=== PATIENT | female | born 1950 | race Caucasian/White ===

== ENCOUNTER 2016-08-02 21:24 | Inpatient (IN) | payer BC ==
[~2016-08-02] VITALS: Ht 167.6 cm; Wt 76.4 kg
[~2016-08-02 21:24] MED LIST: ACCU40TA10 PO; ASPI1TAB7 PO; CLAR5TAB PO; DYAZ; FINA15GE2; MAGN500T4 PO; MOME17I; POTA-243 PO; ROSUVASTATIN; TRAV0.00 LEFT EYE; WELL150T PO; [UNRECOGNIZED DRUG - OTHER] PO
[2016-08-02] MEDS ORDERED: SODIUM CHLOR 0.9% 1000 ML INJ 800 ML IV ONE (21:27)
[2016-08-02] MEDS ORDERED: SODIUM CHLOR 0.9% 1000 ML INJ 1,000 ML IV ONE (21:27)
[2016-08-02 21:30] VITALS: BP 108/78; PULSE 120; RESP 18; TEMP 97.6; O2SAT 99
[2016-08-02 21:34] VITALS: RESP 18; O2SAT 99
--- NOTE | 2016-08-02 21:43 | PD ---
HPI Chief Complaint: Altered Mental Status Time Seen by Provider: 21:27 Travel History International Travel<30 days: No Contact w/Intl Traveler<30days: No Traveled to known affect area: No History of Present Illness HPI 66-year-old female brought in by her significant other for evaluation of depressed mental status and generalized weakness. Patient has been having issues with her blood pressure all week. She was prescribed amlodipine earlier this week, and prescribed her terazosin today. She took the first dose of this medication, then went into the shower. While in the shower she experienced generalized weakness. She did not pass out or injure herself. Here the patient reports that for the last week she has also been experiencing diarrhea. She has had several loose/brown bowel movements. No melena or hematochezia. Diarrhea is associated with left lower quadrant abdominal pain. No history of abdominal surgeries. She denies chest pain or dyspnea. No urinary symptoms. No headache. No paresthesias or motor deficits. PFSH Past Medical History Cardiovascular Problems: Yes Social History Tobacco Use: No Allergies-Medications (Allergen,Severity, Reaction): Coded Allergies: Codeine (Verified Adverse Reaction, Severe, SOB, 08/02/16) Reported Meds & Prescriptions Reported Meds & Active Scripts Active Reported Atorvastatin (Atorvastatin Calcium) 20 Mg Tab 20 Mg PO HS Lutein 20 Mg Cap 20 Mg PO BID Accupril (Quinapril HCl) 40 Mg Tab 40 Mg PO DAILY Finacea Topical (Azelaic Acid) 15% Gel 1 Applic TOPICAL BID Apply and gently massage a thin layer into affected areas on the face. Travatan Z Opth Drops (Travoprost) 0.004 % Soln 1 Drop EACH EYE HS Xanax (Alprazolam) 0.25 Mg Tab 0.25 Mg PO Q6H PRN Wellbutrin SR 12 HR (Bupropion HCl) 150 Mg Tab 150 Mg PO DAILY Amlodipine (Amlodipine Besylate) 10 Mg Tab 10 Mg PO DAILY Aspirin 81 Mg Chew 81 Mg CHEW DAILY Review of Systems Except as stated in HPI: all other systems reviewed are Neg Physical Exam Narrative GENERAL: Well-developed, well-nourished, awake, keeps eyes closed, moving slowly , moves all extremities SKIN: Focused skin assessment warm/dry. No rash. No lacerations, abrasions, or ecchymosis. No pallor. HEAD: Atraumatic. Normocephalic. EYES: Pupils equal, round, 3 mm, reactive to light. No scleral icterus. No injection or drainage. ENT: Mucous membranes pink and dry. NECK: Trachea midline. No JVD. No nuchal rigidity. CARDIOVASCULAR: Tachycardic, rate 120, regular. RESPIRATORY: No accessory muscle use. Clear to auscultation. Breath sounds equal bilaterally. GASTROINTESTINAL: Abdomen soft, nondistended. Moderate left lower quadrant tenderness without rebound or guarding. Rest of abdomen is soft and nontender. Normal bowel sounds. No hernias. MUSCULOSKELETAL: No obvious deformities. No clubbing. No cyanosis. No edema. NEUROLOGICAL: Awake and alert. No obvious cranial nerve deficits. Motor grossly within normal limits. Normal speech. No focal deficits. PSYCHIATRIC: Appropriate mood and affect; insight and judgment normal. Data Data Last Documented VS Vital Signs Date Time Temp Pulse Resp B/P Pulse Ox O2 Delivery O2 Flow Rate FiO2 08/02/16 23:23 94 18 127/62 99 Room Air 08/02/16 21:30 97.6 Orders Electrocardiogram (08/02/16 21:27) Complete Blood Count With Diff (08/02/16 21:27) Comprehensive Metabolic Panel (08/02/16 21:27) Prothrombin Time / Inr (Pt) (08/02/16 21:27) Act Partial Throm Time (Ptt) (08/02/16 21:27) Lactic Acid Sepsis Protocol (08/02/16 21:27) Magnesium (Mg) (08/02/16 21:27) Ckmb (Isoenzyme) Profile (08/02/16 21:27) Troponin I (08/02/16 21:27) Urinalysis - C+S If Indicated (08/02/16 21:27) Blood Culture (08/02/16 21:27) Chest, Single Ap (08/02/16 21:27) Blood Glucose (08/02/16 21:27) Ecg Monitoring (08/02/16 21:27) Iv Access Insert/Monitor (08/02/16 21:27) Oximetry (08/02/16 21:27) Oxygen Administration (08/02/16 21:27) Sodium Chlor 0.9% 1000 Ml Inj (Ns 1000 M (08/02/16 21:27) Sodium Chlor 0.9% 1000 Ml Inj (Ns 1000 M (08/02/16 21:27) Ct Brain W/O Iv Contrast(Rout) (08/02/16 ) Thyroid Stimulating Hormone (08/02/16 21:27) CKMB (08/02/16 21:30) CKMB% (08/02/16 21:30) Ct Abd/Pel W/O Iv Contrast (08/02/16 ) Ciprofloxacin 400 Mg Premix (Cipro 400 M (08/02/16 23:45) Metronidazole 500 Mg Inj (Flagyl 500 Mg (08/02/16 23:45) Admit Order (Ed Use Only) (08/03/16 00:15) Ciprofloxacin 400 Mg Premix (Cipro 400 M (08/03/16 12:00) Metronidazole 500 Mg Inj (Flagyl 500 Mg (08/03/16 08:00) Admit To Inpatient (08/03/16 ) Vital Signs (Adult) Q4H (08/03/16 00:15) Activity Oob With Assistance (08/03/16 00:15) Food And Beverage Checker / Telemetry .CONTINUOUS (08/03/16 00:15) Intake + Output MARY GRACE.QSHIFT (08/03/16 00:15) Diet Regular Basic (08/03/16 Breakfast) Sodium Chlor 0.9% 1000 Ml Inj (Ns 1000 M (08/03/16 00:15) Sodium Chloride 0.9% Flush (Ns Flush) (08/03/16 00:15) Sodium Chloride 0.9% Flush (Ns Flush) (08/03/16 09:00) Ondansetron Inj (Zofran Inj) (08/03/16 00:15) Comprehensive Metabolic Panel (08/04/16 06:00) Complete Blood Count With Diff (08/04/16 06:00) Scd Bilateral/Knee High MARY GRACE.BID (08/03/16 00:15) Nico Bilateral/Knee High MARY GRACE.QSHIFT (08/03/16 00:15) Acetaminophen (Tylenol) (08/03/16 00:15) Docusate Sodium-Senna (Susan-Colace) (08/03/16 09:00) Magnesium Hydroxide Liq (Milk Of Magnesi (08/03/16 00:15) Sennosides (Senokot) (08/03/16 00:15) Bisacodyl Supp (Dulcolax Supp) (08/03/16 00:15) Lactulose Liq (Lactulose Liq) (08/03/16 00:15) Inpatient Certification (08/03/16 ) (Nf) Travoprost Opth Drops (Travatan Z O (08/03/16 21:00) Labs Laboratory Tests Test 08/02/16 21:30 White Blood Count 13.1 TH/MM3 Red Blood Count 5.00 MIL/MM3 Hemoglobin 15.0 GM/DL Hematocrit 44.3 % Mean Corpuscular Volume 88.6 FL Mean Corpuscular Hemoglobin 30.0 PG Mean Corpuscular Hemoglobin 33.8 % Concent Red Cell Distribution Width 11.6 % Platelet Count 193 TH/MM3 Mean Platelet Volume 8.6 FL Neutrophils (%) (Auto) 75.3 % Lymphocytes (%) (Auto) 16.6 % Monocytes (%) (Auto) 6.9 % Eosinophils (%) (Auto) 0.6 % Basophils (%) (Auto) 0.6 % Neutrophils # (Auto) 9.8 TH/MM3 Lymphocytes # (Auto) 2.2 TH/MM3 Monocytes # (Auto) 0.9 TH/MM3 Eosinophils # (Auto) 0.1 TH/MM3 Basophils # (Auto) 0.1 TH/MM3 CBC Comment DIFF FINAL Differential Comment Prothrombin Time 10.6 SEC Prothromb Time International 1.0 RATIO Ratio Activated Partial 23.6 SEC Thromboplast Time Sodium Level 140 MEQ/L Potassium Level 3.4 MEQ/L Chloride Level 105 MEQ/L Carbon Dioxide Level 22.9 MEQ/L Anion Gap 12 MEQ/L Blood Urea Nitrogen 22 MG/DL Creatinine 1.40 MG/DL Estimat Glomerular Filtration 38 ML/MIN Rate Random Glucose 169 MG/DL Lactic Acid Level 3.0 mmol/L Calcium Level 8.6 MG/DL Magnesium Level 2.1 MG/DL Total Bilirubin 0.6 MG/DL Aspartate Amino Transf 30 U/L (AST/SGOT) Alanine Aminotransferase 30 U/L (ALT/SGPT) Alkaline Phosphatase 119 U/L Total Creatine Kinase 244 U/L Creatine Kinase MB 1.6 NG/ML Creatine Kinase MB % 0.7 % Troponin I LESS THAN 0.02 NG/ML Total Protein 6.5 GM/DL Albumin 3.5 GM/DL Thyroid Stimulating Hormone 8.850 uIU/ML 3rd Gen [facility] Medical Decision Making Medical Screen Exam Complete: Yes Emergency Medical Condition: Yes Interpretation(s) EKG: Sinus, rate 103, PVCs, left axis deviation, LVH, lateral ST changes probably due to LVH. Differential Diagnosis Sepsis, metabolic abnormality, diverticulitis, intra-abdominal infectious process, UTI, cystitis, intracranial abnormality, medication reaction Narrative Course Initial vital signs show heart rate 120, blood pressure 108/78, pulse ox 99% on room air, oral temp of 97.6F. CBC shows WBC 13.1, hemoglobin 15, hematocrit 44.3, platelets 193, neutrophils 75.3%. CMP is remarkable for BUN 22, creatinine 1.4, GFR 38, random glucose 169, otherwise essentially unremarkable. TSH is 8.85 Lactic acid is 3.0 Chest x-ray shows no acute disease. CT head read as normal exam. CT abdomen pelvis: CONCLUSION: Abnormal descending colon with wall thickening and surrounding inflammatory change. There are several diverticuli in the sigmoid colon and the findings are consistent with colitis. The etiology is nonspecific. There is no free air. There is a small amount of fluid in the pelvis. Patient was made aware of all findings. She was given 2 L of normal saline IV and is feeling much improved. She is much more awake and alert. Again there are no focal neurologic findings on exam. She was written for a dose of IV Cipro and Flagyl for colitis seen on CT abdomen pelvis. Her initial presentation could be secondary to dehydration as well as medication side effect after taking her first dose of Terazosin. Given her initial presentation of severe generalized weakness/near syncope, lactic acidosis, initial sinus tachycardia of 120, patient will be admitted for overnight observation for further treatment and evaluation. Patient and the patient's were made aware of all findings and plan for admission. Case discussed with the patient's primary care physician Dr. Valladares. She would like the patient to be admitted to the [facility] hospitalist service. Case discussed with hospitalist Dr. Lopez who will admit the patient to her service. Diagnosis Primary Impression: Sepsis Qualified Code: A41.9 - Sepsis, due to unspecified organism Additional Impressions: Colitis Lactic acidosis Near syncope Kadeem Aguilar MD Aug 02, 2016 21:43
[2016-08-02 21:50] LABS: AUTOMATED NEUTROPHIL # 9.8 TH/MM3 (1.8-7.7); BASOPHIL # 0.1 TH/MM3 (0-0.2); BASOPHIL % 0.6 % (0.0-2.0); EOSINOPHIL # 0.1 TH/MM3 (0-0.4); EOSINOPHIL % 0.6 % (0.0-4.0); HEMATOCRIT 44.3 % (35.0-46.0); HEMO FLAGS DIFF FINAL; LYMPH % 16.6 % (9.0-44.0); LYMPHOCYTE # 2.2 TH/MM3 (1.0-4.8); MEAN CELL VOLUME 88.6 FL (80.0-100.0); MEAN CORPUSCULAR HGB CONC 33.8 % (32.0-36.0); MONO % 6.9 % (0.0-8.0); NEUT % 75.3 % (16.0-70.0); PLATELET COUNT 193 TH/MM3 (150-450); RED CELL DISTRIBUTION WIDTH 11.6 % (11.6-17.2); WHITE BLOOD COUNT 13.1 TH/MM3 (4.0-11.0)
[2016-08-02 21:54] VITALS: BP 124/63; PULSE 100; RESP 18; O2SAT 100
[2016-08-02 21:59] LABS: CHLORIDE 105 MEQ/L (98-107); POTASSIUM 3.4 MEQ/L (3.5-5.1); SODIUM (NA) 140 MEQ/L (136-145)
[2016-08-02 22:03] LABS: ANION GAP 12 MEQ/L (5-15); BICARBONATE 22.9 MEQ/L (21.0-32.0); BLOOD UREA NITROGEN 22 MG/DL (7-18); MAGNESIUM 2.1 MG/DL (1.5-2.5)
[2016-08-02 22:06] LABS: ALT (GPT) 30 U/L (10-53); AST (GOT) 30 U/L (15-37); GLOMERULAR FILTRATION RATE 38 ML/MIN (>89)
[2016-08-02 22:08] LABS: TOTAL BILIRUBIN ADULT 0.6 MG/DL (0.2-1.0)
[2016-08-02 22:09] LABS: ALKALINE PHOSPHATASE 119 U/L (45-117); CREATINE KINASE 244 U/L (26-192)
[2016-08-02 22:21] LABS: CKMB 1.6 NG/ML (0.5-3.6)
[2016-08-02] MEDS ORDERED: AMLO10TA2 PO (22:28)
[2016-08-02] MEDS ORDERED: ASPI81CH CHEW (22:28)
[2016-08-02] MEDS ORDERED: BUPR150CR PO (22:28)
--- NOTE | 2016-08-02 22:28 | RADHPO ---
EXAM DATE/TIME: 08/02/2016 21:43 [facility] COMPARISON: No previous studies available for comparison. INDICATIONS : Shortness of breath. MEDICAL HISTORY : None. SURGICAL HISTORY : None. ENCOUNTER: Initial ACUITY: 1 day PAIN SCORE: 0/10 LOCATION: Bilateral chest FINDINGS: A single view of the chest demonstrates the lungs to be symmetrically aerated without evidence of mas s, infiltrate or effusion. The cardiomediastinal contours are unremarkable. Osseous structures are intact. CONCLUSION: No acute disease. Aubrey Townsend MD on August 02, 2016 at 22:25 Board Certified Radiologist. This report was verified electronically.
[2016-08-02] MEDS ORDERED: LUTE20CA PO (22:32)
[2016-08-02] MEDS ORDERED: TRAV0.00 EACH EYE (22:32)
[2016-08-02] MEDS ORDERED: FINA15GE TOPICAL (22:32)
[2016-08-02] MEDS ORDERED: ALPR.25 PO (22:32)
[2016-08-02] MEDS ORDERED: ACCU40TA PO (22:32)
[2016-08-02] MEDS ORDERED: ATOR20TA15 PO (22:32)
[2016-08-02 22:35] VITALS: BP 122/66; PULSE 96; RESP 18; O2SAT 100
[2016-08-02 22:41] LABS: APTT (PATIENT) 23.6 SEC (24.3-30.1); PROTHROMBIN TIME - PATIENT 10.6 SEC (9.8-11.6)
--- NOTE | 2016-08-02 23:01 | RADHPO ---
EXAM DATE/TIME: 08/02/2016 22:41 [facility] COMPARISON: No previous studies available for comparison. INDICATIONS : Altered mental status RADIATION DOSE: 65.28 CTDIvol (mGy) MEDICAL HISTORY : Cardiovascular disease. Hypertension. SURGICAL HISTORY : Tonsillectomy. ENCOUNTER: Initial ACUITY: 3 days PAIN SCALE: 0/10 LOCATION: cranial TECHNIQUE: Multiple contiguous axial images were obtained of the head. Using automated exposure control and adj ustment of the mA and/or kV according to patient size, radiation dose was kept as low as reasonably a chievable to obtain optimal diagnostic quality images. FINDINGS: CEREBRUM: The ventricles are normal for age. No evidence of midline shift, mass lesion, hemorrhage or acute in farction. No extra-axial fluid collections are seen. POSTERIOR FOSSA: The cerebellum and brainstem are intact. The 4th ventricle is midline. The cerebellopontine angle i s unremarkable. EXTRACRANIAL: The visualized portion of the orbits is intact. SKULL: The calvaria is intact. No evidence of skull fracture. CONCLUSION: Normal examination. Aubrey Townsend MD on August 02, 2016 at 22:59 Board Certified Radiologist. This report was verified electronically.
--- NOTE | 2016-08-02 23:14 | RADHPO ---
EXAM DATE/TIME: 08/02/2016 22:47 [facility] COMPARISON: No previous studies available for comparison. INDICATIONS : Left lower quadrant pain. ORAL CONTRAST: No oral contrast ingested. RADIATION DOSE: 15.29 CTDIvol (mGy) MEDICAL HISTORY : Cardiovascular disease. SURGICAL HISTORY : None. ENCOUNTER: Initial ACUITY: 3 days PAIN SCALE: 5/10 LOCATION: Left lower quadrant TECHNIQUE: Volumetric scanning of the abdomen and pelvis was performed. Using automated exposure control and ad justment of the mA and/or kV according to patient size, radiation dose was kept as low as reasonably achievable to obtain optimal diagnostic quality images. FINDINGS: LOWER LUNGS: The visualized lower lungs are clear. LIVER: Homogeneous density without lesion. There is no dilation of the biliary tree. No calcified gallston es. SPLEEN: Normal size without lesion. PANCREAS: Within normal limits. KIDNEYS: Normal in size and shape. There is no mass, stone, or hydronephrosis. ADRENAL GLANDS: Within normal limits. VASCULAR: There is no aortic aneurysm. BOWEL/MESENTERY: There is bowel wall thickening involving the majority of the descending colon with surrounding inflam matory change in the mesenteric fat. There is no free air. There is a small amount of free fluid in t he pelvis. There are calcifications noted in the posterior pelvis as well. There are multiple diverti culi noted in the sigmoid colon. ABDOMINAL WALL: Within normal limits. RETROPERITONEUM: There is no lymphadenopathy. BLADDER: No wall thickening or mass. REPRODUCTIVE: Within normal limits. INGUINAL: There is no lymphadenopathy or hernia. MUSCULOSKELETAL: Within normal limits for patient age. CONCLUSION: Abnormal descending colon with wall thickening and surrounding inflammatory change. T here are several diverticuli in the sigmoid colon and the findings are consistent with colitis. The e tiology is nonspecific. There is no free air. There is a small amount of fluid in the pelvis. Kurt Rahman MD on August 02, 2016 at 23:06 Board Certified Radiologist. This report was verified electronically.
[2016-08-02 23:23] VITALS: BP 127/62; PULSE 94; RESP 18; O2SAT 99
[2016-08-02 23:45] LABS: LACTIC ACID GHOST NOT REPORTABLE
[2016-08-02] MEDS ORDERED: CIPROFLOXACIN 400 MG PREMIX 200 ML IV ONE (23:45)
[2016-08-02] MEDS ORDERED: metroNIDAZOLE 500 MG INJ 100 ML IV ONE (23:45)
[2016-08-03] VITALS (7 sets, daily range): BP systolic 121–150; BP diastolic 64–84; PULSE 80–108; RESP 18–20; TEMP 97.2–98.6; O2SAT 96–100
[2016-08-03] MEDS ORDERED: BISACODYL 10 MG SUPP RECTAL PRN (00:15)
[2016-08-03] MEDS ORDERED: SENNOSIDES 8.6 MG TAB PO PRN (00:15)
[2016-08-03] MEDS ORDERED: ONDANSETRON HCL 4 MG/2 ML VIAL IVP PRN (00:15)
[2016-08-03] MEDS ORDERED: MAGNESIUM HYDROXIDE SUSP 30 ML CUP PO PRN (00:15)
[2016-08-03] MEDS ORDERED: ACETAMINOPHEN 325 MG TAB PO PRN (00:15)
[2016-08-03] MEDS ORDERED: SODIUM CHLORIDE 0.9% FLUSH 10 ML FLUSH IV FLUSH PRN (00:15)
[2016-08-03] MEDS ORDERED: LACTULOSE SYRUP 20 GM/30 ML CUP PO PRN (00:15)
[2016-08-03] MEDS: SODIUM CHLOR 0.9% 1000 ML INJ 1,000 ML IV SCH ×2 (00:49→10:15)
[2016-08-03 01:59] LABS: GLUCOSE,URINE NEG (NEG); KETONE, URINE TRACE mg/dL (NEG); NITRITE,URINE NEG (NEG)
[2016-08-03 02:02] LABS: BLOOD, URINE MOD (NEG); URINE COLOR YELLOW (YELLW/STRAW)
[2016-08-03 02:04] LABS: COMMENT (UR) CULT NOT INDICATED; CULTURE IF INDICATED CULT NOT INDICATED; SQUAMOUS EPITHELIAL CELL URINE 0-5 /hpf (0-5)
--- NOTE | 2016-08-03 08:47 | HHI.HP ---
[facility] Service [facility] Primary Care Physician Nina Valladares MD Admission Diagnosis sepsis, colitis, lactic acidosis, near syncope Diagnoses: (1) Severe sepsis Diagnosis: Principal (2) Lactic acidosis Diagnosis: Principal (3) Colitis Diagnosis: Principal (4) Near syncope Diagnosis: Principal Chief Complaint: Lightheadedness, dizziness, near syncope Travel History International Travel<30 Days: No Contact w/Intl Traveler <30 Da: No Traveled to Known Affected Are: No Sepsis Criteria SIRS Criteria (2 or more): Heart rate over 90, WBC > 39466, < 4000 or > 10% bands Sepsis Criteria (SIRS+source): Infect source susp/known Severe Sepsis (+one): Lactate >2 Criteria Outcome: Meets severe sepsis criteria History of Present Illness Written by Matt Nova, acting as scribe for Dr. Hartley on 08/03/16 at 08: 31. 66-year-old female with known history of hypertension, hyperlipidemia who presented to hospital because of lightheadedness and dizziness with near syncope. Patient indicates that last evening approximately 7 PM the patient indicates that she took a new blood pressure medication terazosin and when she got in the shower she had a severe overwhelming sensation going from her neck down into her arms of weakness, fatigue with lightheadedness and near syncope. The patient got out of the shower laid down on bed for approximately 5 minutes. Because she did not feel any better her brought her to the emergency department to get evaluated. Patient had workup done in found to have severe sepsis with infection site of colitis. Patient states that she did have episode of severe lower abdominal pain and diarrhea on Friday evening. They went and ate at [employer] in, where she had a chicken sandwich earlier that day. Then Friday late evening she had severe lower abdominal cramping in which she states that the pain was so severe she thought she was going to pass out. She had a hard stool than turn into watery diarrhea. The pain did improve after diarrhea component. She states that she was having continued loose stools throughout the evening and possibly noticed some blood in the toilet that morning. She contributed the blood in the toilet to history of hemorrhoids. Since then her bowel movements have returned to normal, her appetite only started returning last evening. The patient is asking to be able to eat as well as she is wanting to go home today. She indicates that her last colonoscopy was too long ago. Patient reports that her new medication was terazosyn. Experienced lightheadedness shortly after taking two tablets. Review of Systems Constitutional: COMPLAINS OF: Dizziness, DENIES: Diaphoretic episodes, Fatigue , Fever, Weight gain, Weight loss, Chills, Change in appetite, Night Sweats Eyes: DENIES: Blurred vision, Diplopia, Eye inflammation, Eye pain, Vision loss , Double Vision Ears, nose, mouth, throat: DENIES: Vertigo, Nasal discharge, Throat pain, Ear Pain, Running Nose, Sinus Pain Respiratory: DENIES: Apneas, Cough, Snoring, Wheezing, Hemoptysis, Sputum production, Shortness of breath Cardiovascular: DENIES: Chest pain, Palpitations, Syncope, Dyspnea on Exertion , PND, Lower Extremity Edema, Orthopnea, Claudication Gastrointestinal: COMPLAINS OF: Abdominal pain, Diarrhea, DENIES: Black stools , Bloody stools, Constipation, Nausea, Vomiting, Difficulty Swallowing, Anorexia Neurologic: DENIES: Abnormal gait, Headache, Localized weakness, Paresthesias, Seizures, Speech Problems, Tremor, Poor Balance Past Family Social History Past Medical History Hypertension Hyperlipidemia Anxiety and depression Past Surgical History Tonsillectomy Left knee replacement Reported Medications Reported Meds & Active Scripts Active Reported Atorvastatin (Atorvastatin Calcium) 20 Mg Tab 20 Mg PO HS Lutein 20 Mg Cap 20 Mg PO BID Accupril (Quinapril HCl) 40 Mg Tab 40 Mg PO DAILY Finacea Topical (Azelaic Acid) 15% Gel 1 Applic TOPICAL BID Apply and gently massage a thin layer into affected areas on the face. Travatan Z Opth Drops (Travoprost) 0.004 % Soln 1 Drop EACH EYE HS Xanax (Alprazolam) 0.25 Mg Tab 0.25 Mg PO Q6H PRN Wellbutrin SR 12 HR (Bupropion HCl) 150 Mg Tab 150 Mg PO DAILY Amlodipine (Amlodipine Besylate) 10 Mg Tab 10 Mg PO DAILY Aspirin 81 Mg Chew 81 Mg CHEW DAILY Allergies: Coded Allergies: Novocain (Verified Allergy, Intermediate, 08/03/16) MOUTH BLISTERS Codeine (Verified Adverse Reaction, Severe, SOB, 08/02/16) Family History Reviewed is significant for mother having diabetes, stroke. Father in his 60s from myocardial infarction Social History Patient denies any tobacco or illicit drugs. Does drink alcohol occasionally Physical Exam Vital Signs Vital Signs Date Time Temp Pulse Resp B/P Pulse Ox O2 Delivery O2 Flow Rate FiO2 08/03/16 04:30 108 08/03/16 04:00 97.2 89 20 128/72 96 08/03/16 03:28 98 18 99 08/03/16 03:24 96 18 143/68 99 Room Air 08/03/16 02:15 96 18 145/68 99 Room Air 08/03/16 01:00 100 18 121/64 100 Room Air 08/02/16 23:23 94 18 127/62 99 Room Air 08/02/16 22:35 96 18 122/66 100 Room Air 08/02/16 21:54 100 18 124/63 100 Room Air 08/02/16 21:34 99 Room Air 08/02/16 21:34 18 99 Room Air 08/02/16 21:34 120 18 99 Room Air 08/02/16 21:30 97.6 120 18 108/78 99 Physical Exam GENERAL: Well-developed, well-nourished, in no acute distress. alert and orientated HEENT: Head is normocephalic without any lesions or masses noted. Facial features are symmetric. Eyes: Pupils equal round reactive to light. Extraocular muscles are intact. Conjunctivae were clear. Oropharyngeal: Pharynx without any erythema edema. Tongue is midline without deviation. Buccal mucosa is moist without any masses or lesions NECK: Supple without any masses. Trachea midline no deviation. No JVD, no bruits are appreciated CARDIAC: Regular rhythm, regular rate. S1/S2 are heard. No murmurs gallops or rubs. LUNGS: Clear to auscultation bilaterally. No wheeze, rhonchi or rales. No use of accessory muscles on inspiration or expiration. ABDOMEN: Soft, nontender. Nondistended. Bowel sounds heard in all 4 quadrants. No organomegaly or masses. Negative rebound, negative guarding EXTREMITIES: No edema, pulses are equal bilaterally. No cyanosis or clubbing NEUROLOGY: Mood and affect appear appropriate. Cranial nerves II through XII grossly intact. Muscle strength 5/5 in upper and lower extremities bilaterally. Deep tendon reflexes are 2+ in upper and lower extremities bilaterally. Laboratory Laboratory Tests Test 08/02/16 08/02/16 08/03/16 21:30 23:59 00:00 White Blood Count 13.1 Red Blood Count 5.00 Hemoglobin 15.0 Hematocrit 44.3 Mean Corpuscular Volume 88.6 Mean Corpuscular Hemoglobin 30.0 Mean Corpuscular Hemoglobin 33.8 Concent Red Cell Distribution Width 11.6 Platelet Count 193 Mean Platelet Volume 8.6 Neutrophils (%) (Auto) 75.3 Lymphocytes (%) (Auto) 16.6 Monocytes (%) (Auto) 6.9 Eosinophils (%) (Auto) 0.6 Basophils (%) (Auto) 0.6 Neutrophils # (Auto) 9.8 Lymphocytes # (Auto) 2.2 Monocytes # (Auto) 0.9 Eosinophils # (Auto) 0.1 Basophils # (Auto) 0.1 CBC Comment DIFF FINAL Differential Comment Prothrombin Time 10.6 Prothromb Time International 1.0 Ratio Activated Partial 23.6 Thromboplast Time Sodium Level 140 Potassium Level 3.4 Chloride Level 105 Carbon Dioxide Level 22.9 Anion Gap 12 Blood Urea Nitrogen 22 Creatinine 1.40 Estimat Glomerular Filtration 38 Rate Random Glucose 169 Lactic Acid Level 3.0 1.3 Calcium Level 8.6 Magnesium Level 2.1 Total Bilirubin 0.6 Aspartate Amino Transf 30 (AST/SGOT) Alanine Aminotransferase 30 (ALT/SGPT) Alkaline Phosphatase 119 Total Creatine Kinase 244 Creatine Kinase MB 1.6 Creatine Kinase MB % 0.7 Troponin I LESS THAN 0.02 Total Protein 6.5 Albumin 3.5 Thyroid Stimulating Hormone 8.850 3rd Gen Urine Color YELLOW Urine Turbidity CLEAR Urine pH 6.0 Urine Specific [place] 1.010 Urine Protein NEG Urine Glucose (UA) NEG Urine Ketones TRACE Urine Occult Blood MOD Urine Nitrite NEG Urine Bilirubin NEG Urine Leukocyte Esterase SMALL Urine RBC 3-5 Urine WBC 6-8 Urine Squamous Epithelial 0-5 Cells Urine Bacteria NONE Microscopic Urinalysis Comment CULT NOT INDICATED Date/Time Procedure Status Source Growth 08/02/16 21:35 Aerobic Blood Culture Received Blood Peripheral Pending 08/02/16 21:35 Anaerobic Blood Culture Received Blood Peripheral Pending Result Diagram: 08/02/16212908/02/[id number] Imaging Last Impressions Chest X-Ray 08/02/162126 Signed Impressions: Service Date/Time: Tuesday, August 02, 2016 21:43 - CONCLUSION: No acute disease. Aubrey Townsend MD Head CT 08/02/16 0000 Signed Impressions: Service Date/Time: Tuesday, August 02, 2016 22:41 - CONCLUSION: Normal examination. Aubrey Townsend MD Abdomen/Pelvis CT 08/02/16 0000 Signed Impressions: Service Date/Time: Tuesday, August 02, 2016 22:47 - CONCLUSION: Abnormal descending colon with wall thickening and surrounding inflammatory change. There are several diverticuli in the sigmoid colon and the findings are consistent with colitis. The etiology is nonspecific. There is no free air. There is a small amount of fluid in the pelvis. Kurt Rahman MD Septic Shock Reassessment Heart: Regular rate and rhythm Lungs: Clear Skin: Warm, Moist Peripheral Pulses: Bounding Right Radial Bounding Left Radial Capillary Refill: Brisk, <2 seconds Assessment and Plan Assessment and Plan //Severe sepsis -Patient met criteria on admission with leukocytosis, sinus tachycardia, lactic acidosis, colitis by CT -CT did indicate descending colon with wall thickening and surrounding inflammatory change consistent with colitis -Chest x-ray, urinalysis were unremarkable -Patient started on Cipro/Flagyl IV -Blood cultures are pending //Colitis -Patient denies any previous episodes of colitis, could be secondary to food poisoning -Continue antibiotics as above -Continue IV fluids //Lactic acidosis, resolved -Likely secondary to above //Leukocytosis -Continue monitor CBC //Azotemia with mild hypokalemia, unknown acute versus chronic -Continue IV fluids -Monitor renal function -Monitor electrolyte replete as needed //Near syncope -Could be secondary to medication side effect, sepsis, dehydration -Obtain orthostatic vitals -CT the head was unremarkable //Elevated TSH -Check free T3, free T4 //DVT prevention -Sequential compression devices This note was transcribed by scribe [Jacobo Nova]. I, Dr. Abran Hartley personally performed the history, physical exam, and medical decision making; and confirmed the accuracy of the information in the transcribed note. Authenticated by Dr. Abran Hartley on 08/03/16 at 13:22. Patient seen this afternoon as well. Patient feels much better. Eating a salad, lunch. Feels like going home. Denies any abdominal pain recently, however has been having issues with bouts of left lower quadrant pain chronically.. She will complete course of antibiotics and follow-up with gastroenterology as outpatient for diverticulitis, follow-up with primary care for blood pressure. Physician Certification 2 Midnight Certification Type: Admission for Inpatient Services Order for Inpatient Services The services are ordered in accordance with Medicare regulations or non- Medicare payer requirements, as applicable. In the case of services not specified as inpatient-only, they are appropriately provided as inpatient services in accordance with the 2-midnight benchmark. Estimated LOS (days): 1 days is the estimated time the patient will need to remain in the hospital, assuming treatment plan goals are met and no additional complications. Post-Hospital Plan: Not yet determined Matt Nova Aug 03, 2016 08:46 Abran Hartley MD Aug 03, 2016 13:24
[2016-08-03] MEDS ORDERED: DOCUSATE SODIUM 50 MG/SENNA 8.6 MG TAB PO SCH (09:00)
[2016-08-03] MEDS ORDERED: metroNIDAZOLE 500 MG INJ 100 ML IV SCH (09:00)
[2016-08-03] MEDS ORDERED: SODIUM CHLORIDE 0.9% FLUSH 10 ML FLUSH IV FLUSH SCH (09:00)
[2016-08-03 09:36] LABS: AUTOMATED NEUTROPHIL # 8.8 TH/MM3 (1.8-7.7); BASOPHIL % 0.4 % (0.0-2.0); EOSINOPHIL # 0.1 TH/MM3 (0-0.4); EOSINOPHIL % 0.7 % (0.0-4.0); HEMO FLAGS DIFF FINAL; LYMPH % 20.7 % (9.0-44.0); LYMPHOCYTE # 2.6 TH/MM3 (1.0-4.8); MEAN CELL VOLUME 88.6 FL (80.0-100.0); MEAN CORPUSCULAR HEMOGLOBIN 30.3 PG (27.0-34.0); MEAN CORPUSCULAR HGB CONC 34.1 % (32.0-36.0); MONO % 7.5 % (0.0-8.0); NEUT % 70.7 % (16.0-70.0); PLATELET COUNT 157 TH/MM3 (150-450); RED BLOOD COUNT 4.17 MIL/MM3 (4.00-5.30); RED CELL DISTRIBUTION WIDTH 11.8 % (11.6-17.2); WHITE BLOOD COUNT 12.4 TH/MM3 (4.0-11.0)
[2016-08-03 10:17] LABS: CHLORIDE 112 MEQ/L (98-107); POTASSIUM 3.5 MEQ/L (3.5-5.1); SODIUM (NA) 145 MEQ/L (136-145)
[2016-08-03 10:39] LABS: ALKALINE PHOSPHATASE 96 U/L (45-117); ALT (GPT) 26 U/L (10-53); ANION GAP 9 MEQ/L (5-15); AST (GOT) 25 U/L (15-37); BICARBONATE 24.2 MEQ/L (21.0-32.0); BLOOD UREA NITROGEN 12 MG/DL (7-18); GLOMERULAR FILTRATION RATE 69 ML/MIN (>89); TOTAL BILIRUBIN ADULT 0.6 MG/DL (0.2-1.0)
[2016-08-03] MEDS ORDERED: CIPROFLOXACIN 400 MG PREMIX 200 ML IV SCH (12:00)
[2016-08-03] MEDS ORDERED: MIRA3350 PO (13:14)
[2016-08-03] MEDS ORDERED: METR500T10 PO (13:14)
[2016-08-03] MEDS ORDERED: CIPR-9 PO (13:14)
[2016-08-03 14:05] LABS: FREE T3 3.08 PG/ML (2.18-3.98); FREE T4 1.2 NG/DL (0.76-1.46)
[2016-08-03] MEDS ORDERED: LATANOPROST 0.005% OPHT SOLN 2.5 ML BTL EACH EYE SCH (21:00)
--- NOTE | 2016-08-04 10:00 | EKG ---
Date Performed: 08/02/2016 Time Performed: 21:30:20 PTAGE: 66 years EKG: Sinus tachycardia with PVC(s) Left axis deviation Left ventricular hypertrophy Lateral ST-T changes are probably due to ventricular hypertrophy Abnormal ECG NO PREVIOUS TRACING DOCTOR: Antoine Morris Interpretating Date/Time 08/04/2016 09:48:09
== END 2016-08-03 14:32 | disposition home or self-care (01) | DRG 872 ==
LOC: PHED 21:24 → PHEDA 08-03 00:16 → PH3A 08-03 03:15
PROVIDERS: ADMIT Internal Medicine; ATTEND Internal Medicine
DX: A41.9 Sepsis, unspecified organism (principal); E87.2 Acidosis; K57.92 Diverticulitis of intestine, part unspecified, without perforation or abscess without bleeding; E78.5 Hyperlipidemia, unspecified; K52.9 Noninfective gastroenteritis and colitis, unspecified; E87.6 Hypokalemia; I10 Essential (primary) hypertension; Z96.652 Presence of left artificial knee joint
CPT/HCPCS: 70450; 71010; 74176; 80053; 81001; 82550; 82552; 83605; 83735; 84439; 84443; 84481; 84484; 85025; 85610; 85730; 87040; 93005; 96360; J0744; J7030